=== PATIENT | male | born 1955 | race Caucasian/White ===

== ENCOUNTER 2018-11-15 22:26 | Emergency (ER) | payer OTHER ==
--- NOTE | 2018-11-15 23:02 | EDPHY ---
H & P Stated Complaint: painful, frequent, bloody urination Time Seen by Provider: 11/15/18 23:01 HPI/ROS: HPI CHIEF COMPLAINT: Dysuria, urinary frequency HISTORY OF PRESENT ILLNESS: Patient very pleasant 63-year-old male, he is visiting from [facility], here for work, states he went out to dinner tonight, developed urgency and then got back to his hotel room and had urinary frequency with dysuria. Noticed some blood in his urine. He continues to have urinary urgency. He denies any back pain, flank pain, fever, denies abdominal pain, denies vomiting. He does report to me that he has had previous BPH and urinary tract infections in the past. He does report to me that he has been drinking lots of fluids. He is here on business. He arrived yesterday. Past Medical History: Hypertension, BPH, hyperlipidemia Past Surgical History: No recent surgery Social History: Denies drugs alcohol tobacco. Resides in [facility]. Family History: Noncontributory ROS REVIEW OF SYSTEMS: 10 Systems were reviewed and negative with the exception of the elements mentioned in the history of present illness. Exam Constitutional triage nursing summary reviewed, vital signs reviewed, awake/ alert. Eyes normal conjunctivae and sclera, EOMI, PERRLA. HENT normal inspection, atraumatic, moist mucus membranes, no epistaxis, neck supple/ no meningismus, no raccoon eyes. Respiratory clear to auscultation bilaterally, normal breath sounds, no respiratory distress, no wheezing. Cardiovascular rate normal, regular rhythm, no murmur, no edema, distal pulses normal. Gastrointestinal soft, non-tender, no rebound, no guarding, normal bowel sounds, no distension, no pulsatile mass. Genitourinary no CVA tenderness. Musculoskeletal no midline vertebral tenderness, full range of motion, no calf swelling, no tenderness of extremities, no meningismus, good pulses, neurovascularly intact. Skin pink, warm, & dry, no rash, skin atraumatic. Neurologic awake, alert and oriented x 3, AAOx3, moves all 4 extremities equally, motor intact, sensory intact, CN II-XII intact, normal cerebellar, normal vision, normal speech. Psychiatric normal mood/affect. Heme/Lymph/Immune no lymphadenopathy. Differential Diagnosis: Includes but is not limited to in a particular order UTI, cystitis, pyelonephritis, prostatitis, bladder CA Medical Decision Making: Plan for this patient IV establishment IV fluid bolus , basic labs, urinalysis re-evaluate. Re-evaluation: Patient's urinalysis reviewed this shows urinary tract infection. Urine culture sent. The patient emergency room received 1 g Rocephin, Keflex p.o., Keflex take-home pack, peridium p.o., peridium prescription, Keflex prescription. The patient is from out of town he understands drink lots of fluids stay well- hydrated while in town. When he returns to [facility] he needs to follow up with his primary care doctor. Additionally discussed return precautions if he develops worsening abdominal pain, fever, back pain, vomiting, unable to urinate he needs to immediately return emergency room. He understands this. Patient's review of his labs are unremarkable no high white count, electrolytes appropriate, normal kidney function. Abdomen is soft nontender. He is not vomiting. He feels well. Is not appear toxic. No CVA tenderness on exam. Clinically urinary tract infection. Recommend he follows up with his PCP at home. Return precautions discussed with me understands this comfortable this plan. Comfortable discharge. Source: Patient - Personal History Current Tetanus Diphtheria and Acellular Pertussis (TDAP): Yes - Medical/Surgical History Hx Asthma: No Hx Chronic Respiratory Disease: No Hx Diabetes: No Hx Cardiac Disease: No Hx Renal Disease: No Hx Cirrhosis: No Hx Alcoholism: No Hx HIV/AIDS: No Hx Splenectomy or Spleen Trauma: No Other PMH: high BP, high cholesterol, BPH - Social History Smoking Status: Never smoked Constitutional: Initial Vital Signs Temperature (C) 36.7 C 11/15/18 22:36 Heart Rate 75 11/15/18 22:36 Respiratory Rate 20 11/15/18 22:36 Blood Pressure 159/81 H 11/15/18 22:36 O2 Sat (%) 94 11/15/18 22:36 O2 Delivery Mode Room Air Allergies/Adverse Reactions: No Known Allergies Allergy (Unverified 11/15/18 22:34) Home Medications: Medication Instructions Recorded Atrovastin 11/15/18 Cephalexin [Keflex] 500 mg PO Q6H #28 cap 11/15/18 Metoprolol Succinate 11/15/18 Phenazopyridine HCl [Pyridium] 200 mg PO TID #15 tab 11/15/18 Tamsulosin HCl 11/15/18 Medical Decision Making - Data Points Laboratory Results: Laboratory Results 11/15/18 23:13 11/15/18 23:13 11/15/18 11/15/18 11/15/18 23:13 23:13 23:13 WBC 7.15 10^3/uL 10^3/uL (3.80-9.50) RBC 4.82 10^6/uL 10^6/uL (4.40-6.38) Hgb 14.8 g/dL g/dL (13.7-17.5) Hct 42.9 % % (40.0-51.0) MCV 89.0 fL fL (81.5-99.8) MCH 30.7 pg pg (27.9-34.1) MCHC 34.5 g/dL g/dL (32.4-36.7) RDW 13.7 % % (11.5-15.2) Plt Count 145 10^3/uL L 10^3/uL (150-400) MPV 10.9 fL fL (8.7-11.7) Neut % (Auto) 66.6 % % (39.3-74.2) Lymph % (Auto) 21.3 % % (15.0-45.0) Ballard % (Auto) 8.8 % % (4.5-13.0) Eos % (Auto) 2.8 % % (0.6-7.6) Baso % (Auto) 0.4 % % (0.3-1.7) Nucleat RBC Rel Count 0.0 % % (0.0-0.2) Absolute Neuts (auto) 4.76 10^3/uL 10^3/uL (1.70-6.50) Absolute Lymphs (auto) 1.52 10^3/uL 10^3/uL (1.00-3.00) Absolute Monos (auto) 0.63 10^3/uL 10^3/uL (0.30-0.80) Absolute Eos (auto) 0.20 10^3/uL 10^3/uL (0.03-0.40) Absolute Basos (auto) 0.03 10^3/uL 10^3/uL (0.02-0.10) Absolute Nucleated RBC 0.00 10^3/uL 10^3/uL (0-0.01) Immature Gran % 0.1 % % (0.0-1.1) Immature Gran # 0.01 10^3/uL 10^3/uL (0.00-0.10) Sodium 138 mEq/L mEq/L (135-145) Potassium 4.1 mEq/L mEq/L (3.5-5.2) Chloride 104 mEq/L mEq/L (97-110) Carbon Dioxide 22 mEq/l mEq/l (22-31) Anion Gap 12 mEq/L mEq/L (6-14) BUN 18 mg/dL mg/dL (7-23) Creatinine 0.8 mg/dL mg/dL (0.7-1.3) Estimated GFR > 60 Glucose 110 mg/dL H mg/dL (70-100) Calcium 9.2 mg/dL mg/dL (8.5-10.4) Urine Color RED Urine Appearance TURBID Urine pH 5.0 (5.0-7.5) Ur Specific [place] 1.025 (1.002-1.030) Urine Protein 2+ H (NEGATIVE) Urine Ketones NEGATIVE (NEGATIVE) Urine Blood 3+ H (NEGATIVE) Urine Nitrate NEGATIVE (NEGATIVE) Urine Bilirubin NEGATIVE (NEGATIVE) Urine Urobilinogen NEGATIVE EU EU (0.2-1.0) Ur Leukocyte Esterase 2+ H (NEGATIVE) Urine RBC 50-182 /hpf H /hpf (0-3) Urine WBC 50-182 /hpf H /hpf (0-3) Ur Epithelial Cells TRACE /lpf /lpf (NONE-1+) Urine Mucus 1+ /lpf /lpf (NONE-1+) Urine Glucose NEGATIVE (NEGATIVE) Medications Given: Discontinued Medications Cephalexin (Keflex 500 Mg Prepack#4) 1 btl TAKEHOME EDNOW ONE PRN Reason: Protocol Stop: 11/15/18 23:49 Last Admin: 11/15/18 23:59 Dose: 1 btl Cephalexin HCl (Keflex) 500 mg PO EDNOW ONE PRN Reason: Protocol Stop: 11/15/18 23:49 Last Admin: 11/15/18 23:59 Dose: 500 mg Sodium Chloride (Ns) 1,000 mls @ 0 mls/hr IV EDNOW ONE; Wide Open PRN Reason: Protocol Stop: 11/15/18 23:09 Last Admin: 11/15/18 23:21 Dose: 1,000 mls Ceftriaxone Sodium/Dextrose (Rocephin 1 Gm (Premix)) 50 mls @ 100 mls/hr IV EDNOW ONE PRN Reason: Protocol Stop: 11/16/18 00:16 Last Admin: 11/15/18 23:53 Dose: 50 mls Phenazopyridine HCl (Pyridium) 200 mg PO EDNOW ONE Stop: 11/15/18 23:49 Last Admin: 11/15/18 23:59 Dose: 200 mg Departure - Departure Disposition: Home, Routine, Self-Care Clinical Impression: Urinary tract infection Qualifiers: Urinary tract infection type: acute cystitis Hematuria presence: with hematuria Qualified Code(s): N30.01 - Acute cystitis with hematuria Condition: Good Instructions: Cephalexin (By mouth), Urinary Tract Infection in Men (ED) Additional Instructions: 1. Please drink lots of fluids stay well-hydrated 2. Antibiotics as prescribed. 3. Return emergency room if worsening symptoms includes abdominal pain, fever, vomiting. Referrals: SADAF NOGUERA [Other] - As per Instructions Prescriptions: Cephalexin [Keflex] 500 mg PO Q6H #28 cap Phenazopyridine HCl [Pyridium] 200 mg PO TID #15 tab
[2018-11-15] MEDS ORDERED: NS 1,000 ML IV ONE (23:08)
[2018-11-15 23:25] LABS: PLATELET COUNT 145 10^3/uL (150-400)
[2018-11-15] MEDS ORDERED: PHENAZOPYRIDINE HCL 200 MG TAB PO ONE (23:48)
[2018-11-15] MEDS ORDERED: CEPHALEXIN 500 MG CAP PO ONE (23:48)
[2018-11-15] MEDS ORDERED: CEPHALEXIN 500MG PREPACK#4 BTL TAKEHOME ONE (23:48)
[2018-11-16 00:04] VITALS: BP 125/62
== END 2018-11-16 00:29 | disposition home or self-care (01) ==
DX: N30.01 Acute cystitis with hematuria (principal); E86.9 Volume depletion, unspecified; I10 Essential (primary) hypertension; E78.5 Hyperlipidemia, unspecified
CPT/HCPCS: 96365; J0696